=== PATIENT | female | born 1970 | race Caucasian/White ===

== ENCOUNTER 2018-02-15 07:22 | Observation (INO) | payer SELFPAY ==
[2018-02-15] MEDS ORDERED: NS 1,000 ML IV ONE (08:02)
--- NOTE | 2018-02-15 08:12 | EDPHY ---
H & P Time Seen by Provider: 02/15/18 08:02 HPI/ROS: HPI Facial infection. 48-year-old female by private vehicle. This patient reports that 16 days ago she developed an upper respiratory infection described as a nonproductive cough , sore throat and nasal congestion and sinus pressure. She reports that over the last 4 days she has been feeling worse with a worsening sore throat and right-sided sinus pressure and neck pain. She saw her primary care physician yesterday at [place]. At that time she had a small red splotch on her right maxilla. She was discharged and prescribed Keflex at 250 mg 3 times daily. She presents to the emergency department this morning with significant right- sided facial swelling, right-sided upper neck pain and submandibular swelling and erythema involving the entire right side of her face and spreading across her nose to the left side. ROS: Constitutional: No fever, no chills. As above. Eyes: No discharge. No changes in vision. ENT: As above. Respiratory: No cough. No shortness of breath. Cardiac: No chest pain, no palpitations. Gastrointestinal: No abdominal pain, no vomiting, no diarrhea. Genitourinary: No hematuria. No dysuria or increased frequency with urination. Musculoskeletal: No back pain. As above. No myalgias or arthralgias. Skin: As above. Neurological: No headache. No focal weakness or altered sensation. Past medical history: Asthma, miscarriage x5, hernia surgery, appendectomy. Social history: Nonsmoker. No alcohol. She is here by herself. 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 Physical Exam: General Appearance: Alert, no distress. This patient is responding to questions appropriately and in full sentences. This patient appears well- hydrated and well-nourished. Eyes: Pupils equal and round no pallor or injection. No lid edema, erythema or injection. ENT, Mouth: Mucous membranes are moist. The pharyngeal tissues are unremarkable. No significant edema or swelling. No asymmetry suggestive of abscess. Diffuse erythema of the pharyngeal arches and posterior pharynx. No exudates. No voice changes. No stridor on auscultation of her neck. She has a diffuse, indurated erythema involving most of the right side of her face and maxilla. It does cross her nasal bridge and involved the left medial aspect of her face below her left eye as well. It is mildly indurated and tender on palpation. It also spreads down through the mandible into the submandibular area and right lateral aspect of the neck. She has a swollen and tender right- sided submandibular lymph node. Respiratory: There are no retractions, lungs are clear to auscultation with good air movement bilaterally. Cardiovascular: Regular rate and rhythm. No murmur. Gastrointestinal: Abdomen is soft and nontender, no masses, bowel sounds normal. No focal tenderness at McBurney's point. No Hernandez sign. Neurological: Motor sensory function is grossly intact. Cranial nerves are normal. Gait is normal. Skin: Warm and dry, as above. Musculoskeletal: Neck is supple and nontender. No significant pain on flexion of the neck. Extremities are symmetrical. All joints range without pain or impingement. Psychiatric: No agitation. No depression. Database: EKG: Imaging: Maxillofacial CT with neck, contrast enhanced; soft tissue induration noted over the right maxilla. No deep space infection. Results were discussed with staff radiologist Dr. Ramana Aguirre. Please see his report for further details. Procedures: Emergency department course: Triage vital signs reviewed. Temperature is 37.5 degrees. Vital signs are otherwise unremarkable. IV was placed. Blood cultures to be obtained. She will be started on IV normal saline with 1 L to be given over the next hour. CT scan of face and neck contrast enhanced will be obtained to evaluate for deep space infection. Rapid strep also to be obtained. Patient's presentation is concerning for erysipelas with extension into her right neck. Limb air syndrome is also of concern. Broad-spectrum antibiotics will be started shortly. She will be given 2 g of IV cefazolin. She will be admitted to the hospitalist service. 9:15 a.m., the patient was re-evaluated. She is resting comfortably at this time. Her vital signs remain within normal limits. She is not in significant pain. Results of her emergency department workup discussed with her. She has had 2 g of IV Ancef. I discussed admission with her. She endorses. All of her questions were answered. Hospitalist paged. 9:30 a.m., spoke with on-call hospitalist, case discussed in detail. Patient accepted for admission to the hospitalist service by Dr. Wali Jarquin. Differential Diagnosis: The differential diagnosis on this patient includes but is not limited to erysipelas, facial cellulitis. Deep space infection, kelvin syndrome unlikely. This represents a partial list of diagnoses considered. These considerations are based on history, physical exam, past history, reassessment and diagnostic testing. Smoking Status: Never smoked Constitutional: Initial Vital Signs Temperature (C) 37.5 C 02/15/18 07:27 Heart Rate 80 02/15/18 07:27 Respiratory Rate 18 02/15/18 07:27 Blood Pressure 102/73 02/15/18 07:27 O2 Sat (%) 95 02/15/18 07:27 O2 Delivery Mode Room Air Allergies/Adverse Reactions: midazolam [From Versed] Allergy (Severe, Verified 02/15/18 10:00) Other-Enter Comments erythromycin base [Erythromycin Base] Allergy (Verified 02/15/18 10:00) Other-Enter Comments gluten Allergy (Verified 02/15/18 10:40) Milk Containing Products [dairy] Allergy (Verified 02/15/18 10:40) Sulfa (Sulfonamide Antibiotics) Allergy (Verified 02/15/18 10:00) Rash Home Medications: Medication Instructions Recorded Cephalexin [Keflex (*)] 250 mg PO TID 02/15/18 Herbals/Supplements -Info Only 1 ea PO DAILY 02/15/18 Pantoprazole Sodium [Protonix 40mg 40 mg PO DAILY 02/15/18 (*)] Medical Decision Making - Data Points Laboratory Results: Laboratory Results 02/15/18 08:15 02/15/18 08:15 Microbiology Results: MICROBIOLOGY 02/15/18 08:45 Blood Blood Culture - Preliminary 02/15/18 08:15 Blood Blood Culture - Preliminary Medications Given: Cefazolin Sodium/Dextrose (Ancef) 100 mls @ 200 mls/hr IV Q8HRS CIERRA PRN Reason: Protocol Stop: 03/17/18 15:59 Last Admin: 02/16/18 14:02 Dose: 100 mls Ibuprofen (Motrin) 600 mg PO Q8HRS PRN PRN Reason: Pain, Mild Stop: 08/14/18 22:46 Last Admin: 02/16/18 10:00 Dose: 600 mg Pantoprazole Sodium (Protonix) 40 mg PO DAILY [facility] Stop: 08/15/18 08:59 Last Admin: 02/16/18 10:00 Dose: 40 mg Discontinued Medications Sodium Chloride (Ns) 1,000 mls @ 0 mls/hr IV ONCE ONE; Wide Open PRN Reason: Protocol Stop: 02/15/18 08:03 Last Admin: 02/15/18 08:48 Dose: 1,000 mls Cefazolin Sodium/Dextrose (Ancef) 100 mls @ 200 mls/hr IV EDNOW ONE PRN Reason: Protocol Stop: 02/15/18 08:42 Last Admin: 02/15/18 08:49 Dose: 100 mls Departure - Departure Disposition: [facility] Inpatient Acute Clinical Impression: Erysipelas, Facial cellulitis Condition: Fair
[2018-02-15] MEDS ORDERED: ceFAZolin 2 GM/DEXTROSE 100 ML IV ONE (08:13)
[2018-02-15 08:23] LABS: PLATELET COUNT 223 10^3/uL (150-400)
[2018-02-15] MEDS ORDERED: CEFAZOLIN 1 GM/DEXTROSE/50 ML BAG IV ONE (08:40)
[2018-02-15] MEDS ORDERED: IOPAMIDOL (ISOVUE-300) 100 ML BTL ONE (08:43)
[2018-02-15] MEDS ORDERED: ONDANSETRON 4 MG/2 ML VIAL IVP PRN (09:38)
[2018-02-15] MEDS ORDERED: oxyCODONE IR 5 MG TAB PO PRN (09:38)
[2018-02-15] MEDS ORDERED: ONDANSETRON DISINTEGRATING 4 MG TAB PO PRN (09:38)
[2018-02-15] MEDS ORDERED: ACETAMINOPHEN 325 MG TAB PO PRN (09:38)
--- NOTE | 2018-02-15 10:47 | PDGENHP ---
History and Physical - Chief Complaint facial redness - History of Present Illness 48yo generally healthy female who presents with rapid progression of right sided facial redness. She initially developed cold-like symptoms with runny nose , malaise, and body aches in mid-january. These symptoms gradually improved but she did not some throat scratchiness about a week after this which she attributed to ongoing post-nasal gtt. Near the end of january she noted a swollen lymph node in her left neck. Yesterday she noted a small area of redness on her right cheek and felt very lethargic so she saw her PCP who prescribed keflex. This morning the redness involved all of her right cheek, her neck was mildly tender, and she noted a submandibular lymph node was swollen so she came to ED. She reports mild chills but no fevers over the last few weeks. Denies n/v/d, urinary sxs, cough, sob. Denies pain with eye movements , vision changes. In the ED, she was found to have a temperature of 37. and WBC 11k. She was given 1L NS and IV cefazolin and is being admitted for further management. History Information - Allergies/Home Medication List Allergies/Adverse Reactions: midazolam [From Versed] Allergy (Severe, Verified 02/15/18 10:00) Other-Enter Comments erythromycin base [Erythromycin Base] Allergy (Verified 02/15/18 10:00) Other-Enter Comments gluten Allergy (Verified 02/15/18 10:40) Milk Containing Products [dairy] Allergy (Verified 02/15/18 10:40) Sulfa (Sulfonamide Antibiotics) Allergy (Verified 02/15/18 10:00) Rash Home Medications: Cephalexin [Keflex (*)] 250 mg PO TID 02/15/18 [Last Taken 02/15/18] Herbals/Supplements -Info Only 1 ea PO DAILY 02/15/18 [Last Taken Unknown] Pantoprazole Sodium [Protonix 40mg (*)] 40 mg PO DAILY 02/15/18 [Last Taken 06/02] I have personally reviewed and updated: family history, medical history, social history, surgical history - Past Medical History Additional medical history: gerd - Surgical History Additional surgical history: appendectomy, umbilical hernia repair - Family History Additional family history: father - CAD, ? 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 No known students with rash or active infection. She is . No children. Lives in [place]. Review of Systems Review of Systems: ROS: 10pt was reviewed & negative except for what was stated in HPI & below Physical Exam Physical Exam: Temp Pulse Resp BP Pulse Ox 37 C 79 16 92/69 L 96 02/15/18 09:56 02/15/18 09:56 02/15/18 09:56 02/15/18 09:56 02/15/18 09:56 Constitutional: no apparent distress, appears nourished, not in pain Eyes: PERRL, anicteric sclera, EOMI Ears, Nose, Mouth, Throat: moist mucous membranes, other (normal tympanic membranes, dry mucosa in nares, clear oropharynx) Cardiovascular: regular rate and rhythym, no murmur, rub, or gallop, No edema Respiratory: no respiratory distress, no rales or rhonchi, clear to auscultation Gastrointestinal: normoactive bowel sounds, soft, non-tender abdomen, no palpable masses Genitourinary: no bladder fullness, no bladder tenderness Skin: erythema (erythema with distinct borders involving right cheek extending across nasal bridge to left cheek below left eye) Neurologic: AAOx3 Psychiatric: interacting appropriately, not anxious, not encephalopathic, thought process linear Lymph, Heme, Immunologic: lymphadenopathy (left and right submandibular, submental nodes) Lab Data & Imaging Review 02/15/18 08:15 02/15/18 08:15 WBC 11.23 10^3/uL (3.80-9.50) H 02/15/18 08:15 RBC 4.49 10^6/uL (4.18-5.33) 02/15/18 08:15 Hgb 12.9 g/dL (12.6-16.3) 02/15/18 08:15 Hct 39.1 % (38.0-47.0) 02/15/18 08:15 MCV 87.1 fL (81.5-99.8) 02/15/18 08:15 MCH 28.7 pg (27.9-34.1) 02/15/18 08:15 MCHC 33.0 g/dL (32.4-36.7) 02/15/18 08:15 RDW 13.1 % (11.5-15.2) 02/15/18 08:15 Plt Count 223 10^3/uL (150-400) 02/15/18 08:15 MPV 10.0 fL (8.7-11.7) 02/15/18 08:15 Neut % (Auto) 83.4 % (39.3-74.2) H 02/15/18 08:15 Lymph % (Auto) 9.6 % (15.0-45.0) L 02/15/18 08:15 [place] % (Auto) 5.0 % (4.5-13.0) 02/15/18 08:15 Eos % (Auto) 1.3 % (0.6-7.6) 02/15/18 08:15 Baso % (Auto) 0.3 % (0.3-1.7) 02/15/18 08:15 Nucleat RBC Rel Count 0.0 % (0.0-0.2) 02/15/18 08:15 Absolute Neuts (auto) 9.37 10^3/uL (1.70-6.50) H 02/15/18 08:15 Absolute Lymphs (auto) 1.08 10^3/uL (1.00-3.00) 02/15/18 08:15 Absolute Monos (auto) 0.56 10^3/uL (0.30-0.80) 02/15/18 08:15 Absolute Eos (auto) 0.15 10^3/uL (0.03-0.40) 02/15/18 08:15 Absolute Basos (auto) 0.03 10^3/uL (0.02-0.10) 02/15/18 08:15 Absolute Nucleated RBC 0.00 10^3/uL (0-0.01) 02/15/18 08:15 Immature Gran % 0.4 % (0.0-1.1) 02/15/18 08:15 Immature Gran # 0.04 10^3/uL (0.00-0.10) 02/15/18 08:15 Sodium 139 mEq/L (135-145) 02/15/18 08:15 Potassium 3.5 mEq/L (3.3-5.0) 02/15/18 08:15 Chloride 108 mEq/L (97-110) 02/15/18 08:15 Carbon Dioxide 22 mEq/l (22-31) 02/15/18 08:15 Anion Gap 9 mEq/L (6-14) 02/15/18 08:15 BUN 9 mg/dL (7-23) 02/15/18 08:15 Creatinine 0.7 mg/dL (0.6-1.0) 02/15/18 08:15 Estimated GFR > 60 02/15/18 08:15 Glucose 92 mg/dL (70-100) 02/15/18 08:15 Calcium 8.1 mg/dL (8.5-10.4) L 02/15/18 08:15 Beta HCG, Qual NEGATIVE 02/15/18 08:15 Group A Strep Screen NEGATIVE (NEGATIVE) 02/15/18 08:15 Assessment & Plan Assessment: 48yo generally healthy female who presents with rapid progression of right sided facial redness consistent with cellulitis. Plan: #Facial cellulitis: Non-toxic appearing, not septic. Consistent with erysipelas , likely beta hemolytic strep. Unclear portal of entry. No e/o orbital cellulitis and CT without abscess/drainable fluid collection. No h/o MRSA infections. Very low suspicion of Lemierre's syndrome. While erythema worsened on keflex, I don't think this was due to lack of inappropriate antimicrobial coverage. - Check parvovirus B19 serology given her profession - IV cefazolin 1g q8h - Follow clinical response #Leukocytosis: Mild, related to above VTE ppx: low risk, ambulate Diet: regular Code: full Dispo: Admit under observation for management of infection with IV antibiotics. Potentially discharge tomorrow with PO antibiotics.
[2018-02-15] MEDS: ceFAZolin 2 GM/DEXTROSE 100 ML IV SCH ×2 (14:32→22:15)
[2018-02-15 15:37] LABS: GROUP A STREP DNA (THROAT) POSITIVE (NEGATIVE)
[2018-02-15] MEDS: IBUPROFEN 600 MG TAB PO PRN (22:53)
[2018-02-16 04:31] LABS: PLATELET COUNT 178 10^3/uL (150-400)
[2018-02-16] MEDS: ceFAZolin 2 GM/DEXTROSE 100 ML IV SCH ×3 (06:00→21:32)
[2018-02-16] MEDS ORDERED: SODIUM CL NASAL 45 ML BTL EACHNARE PRN (09:02)
--- NOTE | 2018-02-16 09:43 | ASMTCMCOM ---
CM Note CM Note Notes: Chart reviewed. 48 year old female admitted via ED for facial swelling. She is and lives in [place]. 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 Plan: TBD Date Signed: 02/16/2018 09:42 AM Electronically Signed By:Danica Carvajal RN
[2018-02-16] MEDS: PANTOPRAZOLE SODIUM 40 MG TAB PO SCH (10:00)
[2018-02-16] MEDS: IBUPROFEN 600 MG TAB PO PRN ×2 (10:00→21:14)
--- NOTE | 2018-02-16 12:18 | SOAPPROG ---
SOAP Progress Note Assessment/Plan: 48yo generally healthy female who presents with rapid progression of right sided facial cellulitis #Facial cellulitis/erysipelas from strep (+DNA). -orbital cellulitis and CT without abscess/drainable fluid collection. -No h/o MRSA infections. 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 Likely discharge tomorrow with PO antibiotics. PCP-Kayli Villegas MD at [facility] Subjective: Feeling tired. Face less swollen, not painful anymore. Is itchy. No n/v/sore throat. No new areas of rash. Some bloating/constipation. Denies SOB. in room. Objective: Vital Signs Temp Pulse Resp BP Pulse Ox 97.6 F 67 16 92/53 L 95 02/16/18 08:00 02/16/18 08:00 02/16/18 08:00 02/16/18 08:00 02/16/18 08:00 Laboratory Results 02/16/18 04:09 02/15/18 02/16/18 02/17/18 12:59 11:59 11:59 Intake Total Balance - Time Spent With Patient Time Spent With Patient: 25 mins, lots of questions re contagiousness/progression, FU needed, work precautions etc - Pending Discharge Pending Discharge Within 24 Hours: Yes Pending Discharge Date: 02/18/18 Pending Discharge Time: 11:00 Physical Exam - Physical Exam General Appearance: alert, no apparent distress EENT: PERRL/EOMI Neck: supple Respiratory: lungs clear, normal breath sounds Cardiac/Chest: regular rate, rhythm Skin: other (erythema, sl swelling R malar area, minimal erythema/swelling on rest of face/neck demarcated in ER yesterday with marker) Neuro/Psych: alert, normal mood/affect ICD10 Worksheet Patient Problems: Problems Problem Status Onset Erysipelas Acute Facial cellulitis Acute Appendicitis with peritoneal abscess Acute
[2018-02-16] MEDS ORDERED: MELATONIN 3 MG TAB PO PRN (22:38)
[2018-02-17] MEDS: ceFAZolin 2 GM/DEXTROSE 100 ML IV SCH ×2 (05:42→13:57)
[2018-02-17 08:54] VITALS: BP 99/56
[2018-02-17] MEDS: PANTOPRAZOLE SODIUM 40 MG TAB PO SCH (09:52)
--- NOTE | 2018-02-17 12:28 | HOSPPROG ---
Hospitalist Progress Note Assessment/Plan: 48 yo F w strep cellulitis 48yo generally healthy female who presents with rapid progression of right sided facial cellulitis #Facial cellulitis/erysipelas from strep (+DNA). -orbital cellulitis and CT without abscess/drainable fluid collection. -No h/o MRSA infections. 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 face improved Objective: Vital Signs Temp Pulse Resp BP Pulse Ox 36.6 C 65 16 99/56 L 95 02/17/18 08:53 02/17/18 08:53 02/17/18 08:53 02/17/18 08:53 02/17/18 08:53 Laboratory Results 02/16/18 04:09 02/16/18 02/17/18 02/18/18 05:59 05:59 05:59 Intake Total 2700 Balance 2700 - Physical Exam Constitutional: no apparent distress, appears nourished Eyes: PERRL, anicteric sclera Ears, Nose, Mouth, Throat: other (residual erythema on R cheek) Cardiovascular: regular rate and rhythym, no murmur, rub, or gallop Respiratory: no respiratory distress, no rales or rhonchi Gastrointestinal: normoactive bowel sounds, soft, non-tender abdomen Genitourinary: No sanford in urethra Skin: warm, normal color Musculoskeletal: full muscle strength, no muscle tenderness Neurologic: AAOx3, sensation intact bilaterally Psychiatric: interacting appropriately, not anxious ICD10 Worksheet Patient Problems: Problems Problem Status Onset Erysipelas Acute Facial cellulitis Acute Appendicitis with peritoneal abscess Acute
--- NOTE | 2018-02-17 15:07 | ASDISCHSUM ---
Discharge Information Plan Status:Home with No Needs Medically Cleared to Leave:02/16/2018 Discharge Date:02/16/2018 CM D/C Disposition:Home, Routine, Self-Care ADT D/C Disposition: Projected Discharge Date:02/16/2018 Transportation at D/C: Discharge Delay Reason: Follow-Up Date:02/16/2018 Discharge Slot: Final Diagnosis: Placement Information Patient Contact Information Contact Name:MARIA EUGENIA Relationship:Poonam Address:[address] City:[place] Alternate Phone: State/Zip Code:[place] [address] Email: Financial Information Financial Class:HMO and PPO Plans Primary Plan Desc:HMA Primary Plan Number:[id number] Secondary Plan Desc: Secondary Plan Number: Assessment Information LACE LACE Length of stay for Answers: 2 days current admission Comorbidities - select Answers: Other Notes: facial cellulitis all that apply Score: 3 Date Signed: 02/17/2018 02:43 PM Electronically Signed By:Danica Carvajal RN [facility] CM Progress Note CM Note CM Note Notes: Chart reviewed. 48 year old female admitted via ED for facial swelling. She is and lives in [place]. 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 Plan: TBD Date Signed: 02/16/2018 09:42 AM Electronically Signed By:Danica Carvajal RN [facility] CM Progress Note CM Note CM Note Notes: Medically cleared for dc to home independently. No identified needs. Plan: Home no needs. Date Signed: 02/17/2018 02:44 PM Electronically Signed By:Danica Carvajal RN Intervention Information
--- NOTE | 2018-02-17 15:39 | GDS ---
DISCHARGE DIAGNOSES: Erysipelas of the face. Please see admission history and physical by Dr. Wali Jarquin. The patient presented with progressiv e infection. She had started oral Keflex the day before, but was on too low of a dose of 250 three t imes a day. She received 48 hours of IV cefazolin with vast improvement in her white count from 11 t o 5. She was afebrile while here. She had a neck CT negative for abscess. She had no airway compro mise. She is discharged home today to complete a course of antibiotics and increased dose of Keflex 500 four times daily to complete 5-1/2 additional days for a total of 8 days therapy. /[id number]/MODL
== END 2018-02-17 15:24 | disposition home or self-care (01) ==
LOC: EEVIPCON 07:22 → INTOOBSV 09:30 → F1N 11:33
PROVIDERS: ADMIT Internal Medicine; ATTEND Internal Medicine
DX: A46 Erysipelas (principal); J45.909 Unspecified asthma, uncomplicated
CPT/HCPCS: 70491; 96361; 96365; 96376; 99285; G0378; J0690; Q9967